=== PATIENT | male | born 1995 | race Hispanic/Latino ===

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

== ENCOUNTER 2018-09-28 19:45 | Emergency (ER) | payer SELFPAY ==
[2018-09-28] MEDS ORDERED: Sodium Chloride 0.9% 10 ML Syringe FLUSH PRN (20:29)
[2018-09-28] MEDS ORDERED: Sodium Chloride 0.9% 2.5 ML Syringe FLUSH PRN (20:29)
[2018-09-28] MEDS ORDERED: Sodium Chloride 0.9% 1,000 ML IV ONE (20:30)
[2018-09-28] MEDS ORDERED: Ketorolac 30 MG/ML SDV IVPUSH ONE (20:30)
[2018-09-28] MEDS ORDERED: Ondansetron 4 MG/2 ML SDV IVPUSH ONE (20:30)
--- NOTE | 2018-09-28 20:33 | EDM.PDOC ---
ED HPI GENERAL MEDICAL PROBLEM - General Chief Complaint: General Stated Complaint: STOMACH PAINS AND HEAD HURTS Time Seen by Provider: 09/28/18 20:19 - History of Present Illness INITIAL COMMENTS - FREE TEXT/NARRATIVE: HISTORY AND PHYSICAL: History of present illness: Patient is a 23-year-old healthy male who presents with complaints of nausea one episodes of vomiting generalized body aches and a mild headache that started this morning. The patient says that he just started to be more active physically and went to the gym last night and had a very strenuous workout which was full body. He felt okay when he went to bed and that he woke up this morning and felt very sore and achy and then had the nausea and headache and diffuse body aches. He has not had a fever cough chest pain or shortness of breath and is only vomited 1 time a small amount which was this morning. He says that he try to hydrate through his workout as well as today but he is not sure and he feels like he might be dehydrated. His urine is not dark in color or bloody and he has no abdominal pain. He has only a diffuse mild headache but no neck or back pain and no neurosensory changes or weakness. He is not dizzy or lightheaded and he did not pass out or blackout. He did not take anything for the muscle aches or the headache. He has not had any diarrhea Review of systems: As per history of present illness and below otherwise all systems reviewed and negative. Past medical history: As per history of present illness and as reviewed below otherwise noncontributory. Surgical history: As per history of present illness and as reviewed below otherwise noncontributory. Social history: No reported history of drug or alcohol abuse. Family history: As per history of present illness and as reviewed below otherwise noncontributory. Physical exam: General: Well-developed well-nourished man who is nontoxic and mildly overweight and her vital signs are noted by me. HEENT: Atraumatic, normocephalic, pupils reactive, negative for conjunctival pallor or scleral icterus, mucous membranes moist, throat clear, neck supple, nontender, trachea midline. There is no cervical adenopathy or nuchal rigidity Lungs: Clear to auscultation, breath sounds equal bilaterally, chest nontender. Heart: S1S2, regular rate and rhythm no overt murmurs Abdomen: Soft, nondistended, nontender. NABS. Pelvis: Deferred Genitourinary: Deferred. Rectal: Deferred. Extremities: Atraumatic, full range of motion without defects or deficits Neurovascular unremarkable. Neuro: Awake, alert, oriented. Cranial nerves II through XII unremarkable. Cerebellum unremarkable. Motor and sensory unremarkable throughout. Exam nonfocal. Diagnostics: CBC CMP lipase magnesium CPK UA Therapeutics: IV fluids Zofran Toradol She is aware of testing results and feels improved. He is aware that he needs to continue hydration for CPK Impression: Generalized malaise, myalgias vomiting improved Definitive disposition and diagnosis as appropriate pending reevaluation and review of above. Headache Pain Score (Numeric/FACES): 5 - Related Data Allergies Allergy/AdvReac Type Severity Reaction Status Date / Time No Known Allergies Allergy Verified 09/28/18 20:22 Home Meds: Home Meds . [No Known Home Meds] 11/23/16 [History] Past Medical History - Past Surgical History Musculoskeletal Surgical History: Reports: Other (See Below) Other Musculoskeletal Surgeries/Procedures:: right hand and right knee surgeries Social & Family History - Family History Family Medical History: Noncontributory - Tobacco Use Smoking Status *Q: Former Smoker Used Tobacco, but Quit: Yes Month/Year Tobacco Last Used: 2018 - Caffeine Use Caffeine Use: Reports: None - Recreational Drug Use Recreational Drug Use: Yes Drug Use in Last 12 Months: Yes Recreational Drug Type: Reports: Marijuana/Hashish Recreational Drug Use Frequency: Daily ED ROS GENERAL - Review of Systems Review Of Systems: ROS reveals no pertinent complaints other than HPI. ED EXAM, GENERAL - Physical Exam Exam: See Below (see dictation) Course - Vital Signs Last Recorded V/S: Last Vital Signs Temp 36.3 C 09/28/18 20:20 Pulse 80 09/28/18 20:20 Resp BP 148/80 H 09/28/18 20:20 Pulse Ox 99 09/28/18 20:20 - Orders/Labs/Meds Orders: Active Orders 24 hr Category Date Time Status Sodium Chloride 0.9% [Saline Flush] Med 09/28/18 20:29 Active 10 ml FLUSH ASDIRECTED PRN Sodium Chloride 0.9% [Saline Flush] Med 09/28/18 20:29 Active 2.5 ml FLUSH ASDIRECTED PRN Saline Lock Insert [OM.PC] Stat Ot 09/28/18 20:29 Ordered Medication Orders Sodium Chloride (Saline Flush) 10 ml FLUSH ASDIRECTED PRN PRN Reason: Keep Vein Open Sodium Chloride (Saline Flush) 2.5 ml FLUSH ASDIRECTED PRN PRN Reason: Keep Vein Open Labs: Laboratory Tests 09/28/18 09/28/18 09/28/18 Range/Units 20:45 20:52 20:52 WBC 8.56 (4.0-11.0) K/uL RBC 5.35 (4.50-5.90) M/uL Hgb 15.5 (13.0-17.0) g/dL Hct 45.9 (38.0-50.0) % MCV 85.8 (80.0-98.0) fL MCH 29.0 (27.0-32.0) pg MCHC 33.8 (31.0-37.0) g/dL RDW Std Deviation 42.6 (28.0-62.0) fl RDW Coeff of Herlinda 14 (11.0-15.0) % Plt Count 160 (150-400) K/uL MPV 11.30 (7.40-12.00) fL Neut % (Auto) 61.9 (48.0-80.0) % Lymph % (Auto) 29.4 (16.0-40.0) % [place] % (Auto) 6.0 (0.0-15.0) % Eos % (Auto) 2.3 (0.0-7.0) % Baso % (Auto) 0.4 (0.0-1.5) % Neut # (Auto) 5.3 (1.4-5.7) K/uL Lymph # (Auto) 2.5 H (0.6-2.4) K/uL [place] # (Auto) 0.5 (0.0-0.8) K/uL Eos # (Auto) 0.2 (0.0-0.7) K/uL Baso # (Auto) 0.0 (0.0-0.1) K/uL Nucleated RBC % 0.0 /100WBC Nucleated RBCs # 0 K/uL Sodium 142 (136-148) mmol/L Potassium 4.2 (3.5-5.1) mmol/L Chloride 105 (98-107) mmol/L Carbon Dioxide 24.0 (21.0-32.0) mmol/L BUN 11 (7.0-18.0) mg/dL Creatinine 1.1 (0.8-1.3) mg/dL Est Cr Clr Drug Dosing 123.51 mL/min Estimated GFR (MDRD) > 60.0 ml/min Glucose 117 H (74-106) mg/dL Calcium 8.6 (8.5-10.1) mg/dL Magnesium 2.2 (1.8-2.4) mg/dL Total Bilirubin 0.3 (0.2-1.0) mg/dL AST 46 H (15-37) IU/L ALT 113 H (14-63) IU/L Alkaline Phosphatase 70 (46-116) U/L Creatine Kinase 615 H (26-308) U/L Total Protein 7.5 (6.4-8.2) g/dL Albumin 3.9 (3.4-5.0) g/dL Globulin 3.6 (2.6-4.0) g/dL Albumin/Globulin Ratio 1.1 (0.9-1.6) Lipase 94 (73-393) U/L Urine Color YELLOW Urine Appearance CLEAR Urine pH 5.5 (5.0-8.0) Ur Specific [place] 1.025 (1.001-1.035) Urine Protein NEGATIVE (NEGATIVE) mg/dL Urine Glucose (UA) NEGATIVE (NEGATIVE) mg/dL Urine Ketones TRACE H (NEGATIVE) mg/dL Urine Occult Blood NEGATIVE (NEGATIVE) Urine Nitrite NEGATIVE (NEGATIVE) Urine Bilirubin NEGATIVE (NEGATIVE) Urine Urobilinogen 0.2 (<2.0) EU/dL Ur Leukocyte Esterase NEGATIVE (NEGATIVE) Meds: Medications Generic Name Dose Route Start Last Admin Trade Name Freq PRN Reason Stop Dose Admin Sodium Chloride 10 ml 09/28/18 20:29 Saline Flush FLUSH ASDIRECTED PRN Keep Vein Open Sodium Chloride 2.5 ml 09/28/18 20:29 Saline Flush FLUSH ASDIRECTED PRN Keep Vein Open Discontinued Medications Generic Name Dose Route Start Last Admin Trade Name Freq PRN Reason Stop Dose Admin Sodium Chloride 1,000 mls @ 999 mls/hr 09/28/18 20:30 09/28/18 20:46 Normal Saline IV 09/28/18 21:30 999 mls/hr STAT ONE Administration Ketorolac Tromethamine 30 mg 09/28/18 20:30 09/28/18 20:46 Toradol IVPUSH 09/28/18 20:31 30 mg ONETIME ONE Administration Ondansetron HCl 4 mg 09/28/18 20:30 09/28/18 20:46 Zofran IVPUSH 09/28/18 20:31 4 mg ONETIME ONE Administration Departure - Departure Time of Disposition: 21:42 Disposition: Home, Self-Care 01 Condition: Good Clinical Impression: Myalgia Vomiting Qualifiers: Vomiting type: unspecified Vomiting Intractability: non-intractable Nausea presence: with nausea Qualified Code(s): R11.2 - Nausea with vomiting, unspecified - Discharge Information Referrals: PCP,None [Primary Care Provider] - Forms: ED Department Discharge Additional Instructions: The following information is given to patients seen in the emergency department who are being discharged to home. This information is to outline your options for follow-up care. We provide all patients seen in our emergency department with a follow-up referral. The need for follow-up, as well as the timing and circumstances, are variable depending upon the specifics of your emergency department visit. If you don't have a primary care physician on staff, we will provide you with a referral. We always advise you to contact your personal physician following an emergency department visit to inform them of the circumstance of the visit and for follow-up with them and/or the need for any referrals to a consulting specialist. The emergency department will also refer you to a specialist when appropriate. This referral assures that you have the opportunity for followup care with a specialist. All of these measure are taken in an effort to provide you with optimal care, which includes your followup. Under all circumstances we always encourage you to contact your private physician who remains a resource for coordinating your care. When calling for followup care, please make the office aware that this follow-up is from your recent emergency room visit. If for any reason you are refused follow-up, please contact the [facility] emergency department at and ask to speak to the emergency department charge nurse. [facility] Primary care- Internal Medicine and Family [address] [place] [address] Please push hydration such as water and Gatorade and avoid caffeinated products. Use [id number] ibuprofen or Motrin for aches and pains and schedule a follow-up appointment with your provider in the clinic or one of hours. Return to ER as needed and as discussed - My Orders Last 24 Hours: My Active Orders 09/28/18 20:29 Sodium Chloride 0.9% [Saline Flush] 10 ml FLUSH ASDIRECTED PRN Sodium Chloride 0.9% [Saline Flush] 2.5 ml FLUSH ASDIRECTED PRN Saline Lock Insert [OM.PC] Stat - Assessment/Plan Last 24 Hours: My Active Orders 09/28/18 20:29 Sodium Chloride 0.9% [Saline Flush] 10 ml FLUSH ASDIRECTED PRN Sodium Chloride 0.9% [Saline Flush] 2.5 ml FLUSH ASDIRECTED PRN Saline Lock Insert [OM.PC] Stat
[2018-09-28 21:29] LABS: CHLORIDE,CL 105 mmol/L (98-107); SODIUM,NA 142 mmol/L (136-148)
[2018-09-28 22:20] VITALS: BP 119/56
== END 2018-09-28 21:55 | disposition home or self-care (01) ==
LOC: MW.ED 19:45
DX: R11.2 Nausea with vomiting, unspecified (principal); M79.10 Myalgia, unspecified site; R53.81 Other malaise; Z87.891 Personal history of nicotine dependence
CPT/HCPCS: 36415; 80053; 81003; 82550; 83690; 83735; 85025; 96361; 96374; 96375; 99284; J1885; J2405; J7040

== ENCOUNTER 2018-11-30 09:30 | Emergency (ER) | payer SELFPAY ==
[2018-11-30] MEDS ORDERED: Albuterol/Ipratropium 3.0-0.5 MG/3 ML Neb Soln NEB ONE (09:39)
[2018-11-30] MEDS ORDERED: methylPREDNISolone Sodium Succinate 125 MG/2 ML SDV IM ONE (09:39)
--- NOTE | 2018-11-30 09:41 | EDM.PDOC ---
ED HPI GENERAL MEDICAL PROBLEM - General Chief Complaint: Respiratory Problem Stated Complaint: SHORT OF BREATH Time Seen by Provider: 11/30/18 09:39 Source of Information: Reports: Patient - History of Present Illness INITIAL COMMENTS - FREE TEXT/NARRATIVE: HISTORY AND PHYSICAL: History of present illness: []Patient presents with severe cough upon awakening he had been smoking some cigarettes and/or marijuana Presents in no acute distress Review of systems: As per history of present illness and below otherwise all systems reviewed and negative. Past medical history: As per history of present illness and as reviewed below otherwise noncontributory. Surgical history: As per history of present illness and as reviewed below otherwise noncontributory. Social history: No reported history of drug or alcohol abuse. Family history: As per history of present illness and as reviewed below otherwise noncontributory. Physical exam: HEENT: Atraumatic, normocephalic, pupils reactive, negative for conjunctival pallor or scleral icterus, mucous membranes moist, throat clear, neck supple, nontender, trachea midline. Lungs: Clear to auscultation, breath sounds equal bilaterally, chest nontender. Heart: S1S2, regular, negative for clicks, rubs, or JVD. Abdomen: Soft, nondistended, nontender. Negative for masses or hepatosplenomegaly. Negative for costovertebral tenderness. Pelvis: Stable nontender. Genitourinary: Deferred. Rectal: Deferred. Extremities: Atraumatic, negative for cords or calf pain. Neurovascular unremarkable. Neuro: Awake, alert, oriented. Cranial nerves II through XII unremarkable. Cerebellum unremarkable. Motor and sensory unremarkable throughout. Exam nonfocal. Diagnostics: [Chest 1 view ] Therapeutics: [DuoNeb Solu-Medrol 125 mg IM ] Z-Otto Prednisone HFA Impression: [ cute bronchitis] Definitive disposition and diagnosis as appropriate pending reevaluation and review of above. chest Pain Score (Numeric/FACES): 5 - Related Data Allergies Allergy/AdvReac Type Severity Reaction Status Date / Time No Known Allergies Allergy Verified 11/30/18 09:37 Home Meds: Home Meds . [No Known Home Meds] 11/23/16 [History] Past Medical History - Past Surgical History Musculoskeletal Surgical History: Reports: Other (See Below) Other Musculoskeletal Surgeries/Procedures:: right hand and right knee surgeries Social & Family History - Family History Family Medical History: Noncontributory - Caffeine Use Caffeine Use: Reports: None ED ROS GENERAL - Review of Systems Review Of Systems: See Below ED EXAM, GENERAL - Physical Exam Exam: See Below Course - Vital Signs Last Recorded V/S: Last Vital Signs Temp 97.0 F 11/30/18 09:35 Pulse 61 11/30/18 09:35 Resp 12 11/30/18 09:35 BP 161/95 H 11/30/18 09:35 Pulse Ox 99 11/30/18 09:39 - Orders/Labs/Meds Orders: Active Orders 24 hr Category Date Time Status EKG 12 Lead [EKG Documentation Completion] [RC] STAT Care 11/30/18 10:03 Active RT Aerosol Therapy [RC] ASDIRECTED Care 11/30/18 09:39 Active Chest 1V Frontal [CR] Stat Exams 11/30/18 09:39 Taken Meds: Medications Discontinued Medications Generic Name Dose Route Start Last Admin Trade Name Freq PRN Reason Stop Dose Admin Albuterol/Ipratropium 3 ml 11/30/18 09:39 11/30/18 09:44 Duoneb 3.0-0.5 Mg/3 Ml NEB 11/30/18 09:40 3 ml ONETIME ONE Administration Methylprednisolone Sodium Succinate 125 mg 11/30/18 09:39 11/30/18 09:51 Solu-Medrol IM 11/30/18 09:40 125 mg ONETIME ONE Administration Departure - Departure Time of Disposition: 10:15 Disposition: Home, Self-Care 01 Condition: Good Clinical Impression: Acute bronchitis - Discharge Information Referrals: PCP,None [Primary Care Provider] - Forms: ED Department Discharge Additional Instructions: The following information is given to patients seen in the emergency department who are being discharged to home. This information is to outline your options for follow-up care. We provide all patients seen in our emergency department with a follow-up referral. The need for follow-up, as well as the timing and circumstances, are variable depending upon the specifics of your emergency department visit. If you don't have a primary care physician on staff, we will provide you with a referral. We always advise you to contact your personal physician following an emergency department visit to inform them of the circumstance of the visit and for follow-up with them and/or the need for any referrals to a consulting specialist. The emergency department will also refer you to a specialist when appropriate. This referral assures that you have the opportunity for follow-up care with a specialist. All of these measure are taken in an effort to provide you with optimal care, which includes your follow-up. Under all circumstances we always encourage you to contact your private physician who remains a resource for coordinating your care. When calling for follow-up care, please make the office aware that this follow-up is from your recent emergency room visit. If for any reason you are refused follow-up, please contact the [facility] emergency department at and asked to speak to the emergency department charge nurse. - My Orders Last 24 Hours: My Active Orders 11/30/18 09:39 RT Aerosol Therapy [RC] ASDIRECTED Chest 1V Frontal [CR] Stat 11/30/18 10:03 EKG 12 Lead [EKG Documentation Completion] [RC] STAT - Assessment/Plan Last 24 Hours: My Active Orders 11/30/18 09:39 RT Aerosol Therapy [RC] ASDIRECTED Chest 1V Frontal [CR] Stat 11/30/18 10:03 EKG 12 Lead [EKG Documentation Completion] [RC] STAT
[2018-11-30 10:30] VITALS: BP 138/67
--- NOTE | 2018-11-30 10:42 | CR ---
INDICATION: Pain and shortness of breath. TECHNIQUE: Single frontal chest radiograph. FINDINGS: External monitoring leads are seen overlying the patient. Heart and mediastinum are normal. Lungs are clear. No pneumothorax. IMPRESSION: No evidence of acute disease. Dictated by Patrice Madrigal MD @ Nov 30 2018 10:36AM Signed by Dr. Patrice Madrigal @ Nov 30 2018 10:40AM
== END 2018-11-30 10:27 | disposition home or self-care (01) ==
LOC: MW.ED 09:30
DX: J20.9 Acute bronchitis, unspecified (principal)
CPT/HCPCS: 71045; 93005; 94640; 96372; 99285; J2930; J7620-GY

== ENCOUNTER 2020-03-14 10:25 | Emergency (ER) | payer SELFPAY ==
[2020-03-14] MEDS ORDERED: Diphtheria,Pertussis(Acell),Tetanus Vaccine 0.5 ML Syringe IM ONE (10:43)
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
--- NOTE | 2020-03-14 11:20 | CR ---
Nasal bone: 3 views of the nasal bone were obtained. Comparison: No previous study. Slight deformity of the nasal bone compatible with old healed fracture. No acute fracture is seen. Visualized sinuses are clear. Impression: 1. Old healed fracture. 2. Nothing acute is appreciated. Diagnostic code #2 This report was dictated in MDT
[2020-03-14 11:55] VITALS: BP 165/86; PULSE 64
== END 2020-03-14 11:50 | disposition home or self-care (01) ==
LOC: MW.ED 10:25
DX: S09.92XA Unspecified injury of nose, initial encounter (principal); Z23 Encounter for immunization; Y04.2XXA Assault by strike against or bumped into by another person, initial encounter
CPT/HCPCS: 70160; 70160-26; 90471; 90715; 99283; 99283-25

== ENCOUNTER 2020-08-24 09:24 | Emergency (ER) | payer SELFPAY ==
--- NOTE | 2020-08-24 10:48 | EDM.PDOC ---
ED HPI GENERAL MEDICAL PROBLEM - General Chief Complaint: General Stated Complaint: SPOKE TO NURSE Time Seen by Provider: 08/24/20 09:34 - History of Present Illness INITIAL COMMENTS - FREE TEXT/NARRATIVE: 25-year-old male with prior history of hemorrhoids presents with 1 week of perianal pain. It was similar to prior hemorrhoids and last night states that it was the size of a grape. He has been using various antibiotic ointments as well as a colon cleanse. He does not use any steroid creams. Last night the pain was very severe so he popped it with a needle. It bled significantly and he had some relief but this morning it filled up with blood again. No fevers no chills no abdominal pain no other symptoms. Pain currently moderate. Anus Pain Score (Numeric/FACES): 6 - Related Data Allergies Allergy/AdvReac Type Severity Reaction Status Date / Time No Known Allergies Allergy Verified 08/24/20 09:32 Home Meds: Home Meds Hydrocortisone [Anusol-Hc] 30 gm TP TID 7 Days #1 tube 08/24/20 [Rx] Past Medical History - Past Health History Medical/Surgical History: Denies Medical/Surgical History HEENT History: Reports: None Cardiovascular History: Reports: None Respiratory History: Reports: None Gastrointestinal History: Reports: None Genitourinary History: Reports: None Musculoskeletal History: Reports: None Neurological History: Reports: None Psychiatric History: Reports: None Endocrine/Metabolic History: Reports: None Hematologic History: Reports: None Immunologic History: Reports: None Oncologic (Cancer) History: Reports: None Dermatologic History: Reports: None - Infectious Disease History Infectious Disease History: Reports: None - Past Surgical History Male Surgical History: Reports: None Neurological Surgical History: Reports: None Musculoskeletal Surgical History: Reports: Other (See Below) Other Musculoskeletal Surgeries/Procedures:: right hand and right knee surgeries Social & Family History - Family History Family Medical History: No Pertinent Family History - Tobacco Use Tobacco Use Status *Q: Former Tobacco User Used Tobacco, but Quit: Yes Month/Year Tobacco Last Used: 08/18 - Caffeine Use Caffeine Use: Reports: None - Recreational Drug Use Recreational Drug Use: Yes Recreational Drug Type: Reports: Marijuana/Hashish ED ROS GENERAL - Review of Systems Review Of Systems: See Below Free Text/Narrative/Comment: General: No fever. Gastrointestinal: Per HPI ED EXAM, GENERAL - Physical Exam Exam: See Below Free Text/Narrative:: General Appearance: No acute distress, appears comfortable HEENT: Normocephalic/atraumatic, sclera anicteric, mucous membranes moist Abdomen: Soft, non-tender Rectal: Soft partially thrombosed external hemorrhoid with sign of recent puncture but no surrounding erythema no bleeding no purulent drainage no sign of perirectal abscess Neurologic: Awake, alert, no obvious deficits, moving all extremities Psychiatric: Appropriate, cooperative Course - Vital Signs Last Recorded V/S: Last Vital Signs Temp 98.0 F 08/24/20 09:33 Pulse 99 08/24/20 09:33 Resp 18 08/24/20 09:33 BP 139/74 08/24/20 09:33 Pulse Ox 99 08/24/20 09:33 Departure - Departure Time of Disposition: 10:48 Disposition: Home, Self-Care 01 Condition: Good Clinical Impression: External hemorrhoid - Discharge Information *PRESCRIPTION DRUG MONITORING PROGRAM REVIEWED*: Not Applicable *COPY OF PRESCRIPTION DRUG MONITORING REPORT IN PATIENT ARPITA: Not Applicable Prescriptions: Hydrocortisone [Anusol-Hc] 30 gm TP TID 7 Days #1 tube Instructions: Hemorrhoids, [id number], How to Take a Sitz Bath Additional Instructions: Please follow-up with your primary care doctor. If you do not have a primary care doctor you can be seen in one of the primary clinics in [facility]. [facility] - Primary Care [address] [place] [address] [place] [address] I recommend using the steroid cream as prescribed recommend sitz baths up to 3 times daily as needed for discomfort. The following information is given to patients seen in the emergency department who are being discharged to home. This information is to outline your options for follow-up care. We provide all patients seen in our emergency department with a follow-up referral. The need for follow-up, as well as the timing and circumstances, are variable depending upon the specifics of your emergency department visit. If you don't have a primary care physician on staff, we will provide you with a referral. We always advise you to contact your personal physician following an emergency department visit to inform them of the circumstance of the visit and for follow-up with them and/or the need for any referrals to a consulting specialist. The emergency department will also refer you to a specialist when appropriate. This referral assures that you have the opportunity for follow-up care with a specialist. All of these measure are taken in an effort to provide you with optimal care, which includes your follow-up. Under all circumstances we always encourage you to contact your private physician who remains a resource for coordinating your care. When calling for follow-up care, please make the office aware that this follow-up is from your recent emergency room visit. If for any reason you are refused follow-up, please contact the [facility] Emergency Department at and asked to speak to the emergency department charge nurse. Sepsis Event Note (ED) - Evaluation Sepsis Screening Result: No Definite Risk - Focused Exam Vital Signs: Vital Signs Temp Pulse Resp BP Pulse Ox 08/24/20 09:33 98.0 F 99 18 139/74 99 - Assessment/Plan Assessment:: 25-year-old male presenting with partially thrombosed hemorrhoid. Given that is not fully thrombosed incision and drainage not felt appropriate recommended steroid cream and primary care follow-up. Sitz bath's as well. Return precautions discussed and understood. No signs of perirectal abscess no sign of deeper infection no systemic signs or symptoms.
[2020-08-24 11:02] VITALS: BP 147/102; PULSE 80
== END 2020-08-24 11:03 | disposition home or self-care (01) ==
LOC: MW.ED 09:24
DX: K64.4 Residual hemorrhoidal skin tags (principal); Z87.891 Personal history of nicotine dependence
CPT/HCPCS: 99282

== ENCOUNTER 2021-07-09 07:49 | Emergency (ER) | payer SELFPAY ==
[2021-07-09] MEDS ORDERED: Ketorolac 30 MG/ML SDV IM ONE (08:03)
[2021-07-09] MEDS ORDERED: Cyclobenzaprine 10 MG Tab PO ONE (08:03)
[2021-07-09 08:47] LABS: CORONAVIRUS COVID-19 NAA POSITIVE (NEGATIVE); INFLUENZA A NAA NEGATIVE (NEGATIVE); INFLUENZA B NAA NEGATIVE (NEGATIVE)
[2021-07-09 09:32] VITALS: BP 140/78; PULSE 73
== END 2021-07-09 09:31 | disposition home or self-care (01) ==
LOC: MW.ED 07:49
DX: U07.1 COVID-19 (principal); M54.59 Other low back pain
CPT/HCPCS: 0240U; 71045; 81003; 96372; 99283; A9270; J1885

== ENCOUNTER 2021-07-24 08:20 | Emergency (ER) | payer SELFPAY ==
[2021-07-24] MEDS ORDERED: Acetaminophen/HYDROcodone 325-10 MG Tab PO ONE (08:58)
[2021-07-24 16:22] VITALS: BP 131/68; PULSE 71
== END 2021-07-24 09:36 | disposition home or self-care (01) ==
LOC: MW.ED 08:20
DX: S32.2XXA Fracture of coccyx, initial encounter for closed fracture (principal); E66.9 Obesity, unspecified; Z68.41 Body mass index [BMI] 40.0-44.9, adult; W01.0XXA Fall on same level from slipping, tripping and stumbling without subsequent striking against object, initial encounter
CPT/HCPCS: 72170; 99283; A9270

== ENCOUNTER 2021-10-30 18:13 | Emergency (ER) | payer BC, OTHER ==
[2021-10-30] MEDS ORDERED: Sodium Chloride 0.9% 1,000 ML IV ONE (18:40)
[2021-10-30] MEDS ORDERED: Aspirin 81 MG Tab.Chew PO ONE (18:40)
[2021-10-30 19:49] LABS: BLOOD UREA NITROGEN,BUN 20 mg/dL (7.0-18.0); CARBON DIOXIDE,CO2 24.9 mmol/L (21.0-32.0); CHLORIDE,CL 104 mmol/L (98-107); GLUCOSE RANDOM 99 mg/dL (74-106); SODIUM,NA 143 mmol/L (136-148)
[2021-10-30 21:28] VITALS: BP 133/80; PULSE 84
== END 2021-10-30 20:30 | disposition home or self-care (01) ==
LOC: MW.ED 18:13
DX: R07.89 Other chest pain (principal); E66.9 Obesity, unspecified; Z68.41 Body mass index [BMI] 40.0-44.9, adult
CPT/HCPCS: 36415; 71045; 80053; 83735; 84484; 85025; 85379; 93005; 99285; A9270; J7030

== ENCOUNTER 2021-11-21 20:00 | Emergency (ER) | payer BC ==
[2021-11-21] MEDS ORDERED: LORazepam 2 MG/ML SDV IVPUSH ONE (20:11)
[2021-11-21] MEDS ORDERED: Sodium Chloride 0.9% 1,000 ML IV ONE (20:11)
[2021-11-21 20:20] VITALS: BP 127/44; PULSE 135
[2021-11-21 20:44] LABS: BLOOD UREA NITROGEN,BUN 18 mg/dL (7.0-18.0); CARBON DIOXIDE,CO2 22.4 mmol/L (21.0-32.0); CHLORIDE,CL 100 mmol/L (98-107); GLUCOSE RANDOM 134 mg/dL (74-106); SODIUM,NA 138 mmol/L (136-148)
== END 2021-11-21 23:08 | disposition home or self-care (01) ==
LOC: MW.ED 20:00
DX: R00.2 Palpitations (principal); R06.4 Hyperventilation; T40.715A Adverse effect of cannabis, initial encounter; E66.9 Obesity, unspecified; Z68.39 Body mass index [BMI] 39.0-39.9, adult
CPT/HCPCS: 36415; 71045; 80053; 80305; 80307; 83735; 84484; 85025; 93005; 96374; 99285; J2060; J7030

== ENCOUNTER 2022-01-03 18:19 | Emergency (ER) | payer BC ==
[2022-01-03] MEDS ORDERED: Sodium Chloride 0.9% 10 ML Syringe FLUSH PRN (20:01)
[2022-01-03] MEDS ORDERED: Sodium Chloride 0.9% 1,000 ML IV ONE (20:01)
[2022-01-03] MEDS ORDERED: LORazepam 2 MG/ML SDV IVPUSH ONE (20:01)
[2022-01-03] MEDS ORDERED: Sodium Chloride 0.9% 2.5 ML Syringe FLUSH PRN (20:01)
[2022-01-03 21:24] LABS: CARBON DIOXIDE,CO2 23.2 mmol/L (21.0-32.0); POTASSIUM,K 3.7 mmol/L (3.5-5.1)
[2022-01-04 07:51] VITALS: BP 150/91; PULSE 80
== END 2022-01-03 22:08 | disposition home or self-care (01) ==
LOC: MW.ED 18:19
DX: R07.89 Other chest pain (principal); F41.9 Anxiety disorder, unspecified; E66.9 Obesity, unspecified; Z68.41 Body mass index [BMI] 40.0-44.9, adult
CPT/HCPCS: 36415; 80053; 85025; 93005; 96361; 96374; 99285; J2060; J3490; J7030; 93010; 99284

== ENCOUNTER 2022-05-15 05:17 | Emergency (ER) | payer BC ==
[2022-05-15 06:31] LABS: CARBON DIOXIDE,CO2 31.5 mmol/L (21.0-32.0); POTASSIUM,K 4.3 mmol/L (3.5-5.1)
[2022-05-15 07:08] VITALS: BP 120/73; PULSE 70
== END 2022-05-15 07:06 | disposition home or self-care (01) ==
LOC: MW.ED 05:17
DX: R07.89 Other chest pain (principal); E66.9 Obesity, unspecified; Z68.39 Body mass index [BMI] 39.0-39.9, adult
CPT/HCPCS: 36415; 71045; 71045-26; 80053; 83735; 84443; 84484; 85025; 93005; 99285

== ENCOUNTER 2022-08-09 12:54 | Emergency (ER) | payer BC ==
[2022-08-09] MEDS ORDERED: LORazepam 1 MG Tab PO ONE (13:34)
[2022-08-09 14:18] LABS: CARBON DIOXIDE,CO2 27.3 mmol/L (21.0-32.0)
[2022-08-09 15:03] VITALS: BP 123/61; PULSE 69
== END 2022-08-09 15:02 | disposition home or self-care (01) ==
LOC: MW.ED 12:54
DX: R07.9 Chest pain, unspecified (principal); R00.2 Palpitations; E66.9 Obesity, unspecified; Z68.41 Body mass index [BMI] 40.0-44.9, adult
CPT/HCPCS: 36415; 71045; 80053; 84484; 85025; 85379; 93005; 99285; A9270; 93010; 99283

== ENCOUNTER 2022-08-19 21:02 | Emergency (ER) | payer BC ==
[2022-08-19] MEDS ORDERED: LORazepam 0.5 MG Tab PO ONE (21:13)
[2022-08-19 23:53] LABS: CARBON DIOXIDE,CO2 26.4 mmol/L (21.0-32.0)
[2022-08-20 00:24] VITALS: BP 116/70; PULSE 66
== END 2022-08-20 00:23 | disposition home or self-care (01) ==
LOC: MW.ED 21:02
DX: R07.89 Other chest pain (principal); E66.9 Obesity, unspecified; Z68.39 Body mass index [BMI] 39.0-39.9, adult
CPT/HCPCS: 36415; 71045; 80053; 84484; 85027; 93005; 99285; A9270; 93010; 99283

== ENCOUNTER 2022-08-22 20:33 | Emergency (ER) | payer BC ==
[2022-08-22] MEDS ORDERED: Sodium Chloride 0.9% 2.5 ML Syringe FLUSH PRN (20:41)
[2022-08-22] MEDS ORDERED: Sodium Chloride 0.9% 10 ML Syringe FLUSH PRN (20:41)
[2022-08-22] MEDS ORDERED: LORazepam 1 MG Tab PO STA (20:43)
[2022-08-22 21:24] LABS: BLOOD UREA NITROGEN,BUN 10 mg/dL (7.0-18.0); CARBON DIOXIDE,CO2 27.3 mmol/L (21.0-32.0); CHLORIDE,CL 101 mmol/L (98-107); GLUCOSE RANDOM 125 mg/dL (74-106); POTASSIUM,K 3.8 mmol/L (3.5-5.1); SODIUM,NA 139 mmol/L (136-148)
[2022-08-22 21:26] LABS: ESTIMATED GFR 86 mL/min (>60)
[2022-08-22] MEDS ORDERED: Iopamidol 755 MG/ML 500 ML Multipack Bottle IVPUSH ONE (22:36)
[2022-08-23 00:49] VITALS: BP 112/64; PULSE 74
== END 2022-08-23 00:49 | disposition home or self-care (01) ==
LOC: MW.ED 20:33
DX: R07.89 Other chest pain (principal); E66.9 Obesity, unspecified; Z68.41 Body mass index [BMI] 40.0-44.9, adult
CPT/HCPCS: 36415; 71045; 71275; 80053; 80305; 81003; 83735; 84484; 85025; 93005; 99285; A9270; J3490; Q9967; 93010; 99284

== ENCOUNTER 2022-08-27 06:08 | Emergency (ER) | payer SELFPAY ==
[2022-08-27 07:03] VITALS: BP 116/65; PULSE 71
== END 2022-08-27 07:00 | disposition home or self-care (01) ==
LOC: MW.ED 06:08
DX: R07.89 Other chest pain (principal); E66.9 Obesity, unspecified; Z68.30 Body mass index [BMI] 30.0-30.9, adult
CPT/HCPCS: 93005; 93010; 99283; 99284

== ENCOUNTER 2022-10-19 15:13 | Emergency (ER) | payer SELFPAY ==
[2022-10-19] MEDS ORDERED: Ondansetron 4 MG/2 ML SDV IVPUSH ONE (18:16)
[2022-10-19] MEDS ORDERED: Lactated Ringers 1,000 ML IV ONE (18:16)
[2022-10-19] MEDS ORDERED: Ketorolac 30 MG/ML SDV IVPUSH ONE (18:16)
[2022-10-19 19:01] LABS: POTASSIUM,K 4.1 mmol/L (3.5-5.1)
[2022-10-19 20:16] VITALS: BP 133/70; PULSE 60
== END 2022-10-19 20:11 | disposition home or self-care (01) ==
LOC: MW.ED 15:13
DX: R11.2 Nausea with vomiting, unspecified (principal); R10.816 Epigastric abdominal tenderness; E66.9 Obesity, unspecified; Z68.39 Body mass index [BMI] 39.0-39.9, adult
CPT/HCPCS: 36415; 80053; 81003; 83690; 85025; 96361; 96374; 96375; 99284; J1885; J2405; J7120

== ENCOUNTER 2022-12-08 08:58 | Emergency (ER) | payer SELFPAY ==
[2022-12-08] MEDS ORDERED: Ibuprofen 600 MG Tab PO ONE (11:04)
[2022-12-08 11:33] VITALS: BP 129/79; PULSE 65
== END 2022-12-08 11:32 | disposition home or self-care (01) ==
LOC: MW.ED 08:58
DX: S80.02XA Contusion of left knee, initial encounter (principal); E66.9 Obesity, unspecified; Z68.30 Body mass index [BMI] 30.0-30.9, adult; W50.0XXA Accidental hit or strike by another person, initial encounter
CPT/HCPCS: 73562; 73590; 99283; A9270

== ENCOUNTER 2023-01-02 17:53 | Emergency (ER) | payer SELFPAY ==
[2023-01-02] MEDS ORDERED: Sodium Chloride 0.9% 2.5 ML Syringe FLUSH PRN (18:08)
[2023-01-02] MEDS ORDERED: Sodium Chloride 0.9% 10 ML Syringe FLUSH PRN (18:08)
[2023-01-02 18:33] LABS: BASOPHILS PERCENT AUTO 0.3 % (0.0-1.5); EOSINOPHILS ABSOLUTE AUTO 0.1 K/uL (0.0-0.7); HEMATOCRIT 47.8 % (38.0-50.0); LYMPHOCYTES ABSOLUTE AUTO 1.3 K/uL (0.6-2.4); LYMPHOCYTES PERCENT AUTO 19.8 % (16.0-40.0); MEAN CORPUSCULAR HEMOGLOBIN 28.8 pg (27.0-32.0); MEAN CORPUSCULAR HGB CONC 33.5 g/dL (31.0-37.0); MONOCYTES ABSOLUTE AUTO 0.5 K/uL (0.0-0.8); MONOCYTES PERCENT AUTO 7.5 % (0.0-15.0); NEUTROPHILS ABSOLUTE AUTO 4.6 K/uL (1.4-5.7); NEUTROPHILS PERCENT AUTO 70.4 % (48.0-80.0); PLATELET COUNT,PLT 154 K/uL (150-400); RED BLOOD CELL COUNT 5.56 M/uL (4.50-5.90); WHITE BLOOD CELL COUNT,WBC 6.52 K/uL (4.0-11.0)
[2023-01-02 18:56] LABS: A/G RATIO 1.3 (0.9-1.6); ALBUMIN 3.9 g/dL (3.4-5.0); BILIRUBIN TOTAL 1.2 mg/dL (0.2-1.0); CALCIUM 8.8 mg/dL (8.5-10.1); CARBON DIOXIDE,CO2 28.4 mmol/L (21.0-32.0); CREATININE 1.1 mg/dL (0.8-1.3); EST CRCL DRUG DOSING (CG) 112.68 mL/min; POTASSIUM,K 4.2 mmol/L (3.5-5.1); PROTEIN TOTAL,TP 6.9 g/dL (6.4-8.2)
[2023-01-02] MEDS ORDERED: Acetaminophen 325 MG Tab PO ONE (19:15)
[2023-01-02 20:10] VITALS: BP 143/78; PULSE 70
== END 2023-01-02 20:13 | disposition home or self-care (01) ==
LOC: MW.ED 17:53
DX: R42 Dizziness and giddiness (principal); R51.9 Headache, unspecified; E66.9 Obesity, unspecified; Z68.38 Body mass index [BMI] 38.0-38.9, adult
CPT/HCPCS: 36415; 80053; 85025; 99284; A9270; J3490; 93010; 99283

== ENCOUNTER 2023-03-20 02:53 | Emergency (ER) | payer SELFPAY ==
[2023-03-20] MEDS ORDERED: hydrOXYzine Pamoate 25 MG Cap PO ONE (03:26)
[2023-03-20 04:19] VITALS: BP 131/90; PULSE 91
== END 2023-03-20 04:19 | disposition home or self-care (01) ==
LOC: MW.ED 02:53
DX: F41.0 Panic disorder [episodic paroxysmal anxiety] (principal); E66.9 Obesity, unspecified; Z68.33 Body mass index [BMI] 33.0-33.9, adult
CPT/HCPCS: 99283; A9270

== ENCOUNTER 2023-04-15 12:54 | Emergency (ER) | payer SELFPAY ==
[2023-04-15 14:27] LABS: CORONAVIRUS COVID-19 NAA NEGATIVE (NEGATIVE); INFLUENZA A NAA NEGATIVE (NEGATIVE); INFLUENZA B NAA NEGATIVE (NEGATIVE)
[2023-04-15 15:34] VITALS: BP 126/86; PULSE 92
== END 2023-04-15 15:14 | disposition home or self-care (01) ==
LOC: MW.ED 12:54
DX: J18.9 Pneumonia, unspecified organism (principal); F17.210 Nicotine dependence, cigarettes, uncomplicated; E66.9 Obesity, unspecified; Z68.33 Body mass index [BMI] 33.0-33.9, adult; Z20.822 Contact with and (suspected) exposure to COVID-19
CPT/HCPCS: 0240U; 71046; 99283

== ENCOUNTER 2023-06-30 18:21 | Emergency (ER) | payer SELFPAY ==
[2023-06-30] MEDS ORDERED: Sodium Chloride 0.9% 2.5 ML Syringe FLUSH PRN (21:04)
[2023-06-30] MEDS ORDERED: Sodium Chloride 0.9% 1,000 ML IV ONE (21:04)
[2023-06-30] MEDS ORDERED: Sodium Chloride 0.9% 10 ML Syringe FLUSH PRN (21:04)
[2023-06-30] MEDS ORDERED: Ketorolac 30 MG/ML SDV IVPUSH ONE (21:05)
[2023-06-30 21:36] LABS: BASOPHILS ABSOLUTE AUTO 0.04 K/uL (0.00-0.20); BASOPHILS PERCENT AUTO 0.5 % (0.0-1.0); EOSINOPHILS PERCENT AUTO 1.3 % (0.0-6.0); HEMATOCRIT 48.5 % (42.0-52.0); HEMOGLOBIN 16.1 g/dL (14.0-18.0); IMMATURE GRAN ABSOLUTE AUTO 0.01 K/uL (0.00-0.05); IMMATURE GRAN PERCENT AUTO 0.1 % (0.0-0.4); LYMPHOCYTES ABSOLUTE AUTO 1.99 K/uL (1.00-4.80); LYMPHOCYTES PERCENT AUTO 25.7 % (24.0-44.0); MEAN CORPUSCULAR HEMOGLOBIN 29.1 pg (28.0-32.0); MEAN CORPUSCULAR HGB CONC 33.2 g/dL (32.0-36.0); MEAN CORPUSCULAR VOLUME 87.5 fL (83.0-99.0); MEAN PLATELET VOLUME 10.5 fL (9.4-12.4); MONOCYTES ABSOLUTE AUTO 0.43 K/uL (0.00-0.80); MONOCYTES PERCENT AUTO 5.6 % (0.0-8.0); NEUTROPHILS ABSOLUTE AUTO 5.17 K/uL (1.80-7.70); NEUTROPHILS PERCENT AUTO 66.8 % (41.0-71.0); PLATELET COUNT,PLT 160 K/uL (150-400); RED BLOOD CELL COUNT 5.54 M/uL (4.52-5.90); WHITE BLOOD CELL COUNT,WBC 7.74 K/uL (3.9-11.3)
[2023-06-30 22:20] LABS: A/G RATIO 1.3 (0.9-1.6); ALANINE AMINOTRANSFERASE,ALT 34 IU/L (14-63); ALBUMIN 4.3 g/dL (3.4-5.0); ALKALINE PHOSPHATASE 74 U/L (46-116); ASPARTATE AMNIOTRANSFERASE,AST 21 IU/L (15-37); BILIRUBIN TOTAL 0.9 mg/dL (0.2-1.0); BLOOD UREA NITROGEN,BUN 16 mg/dL (7.0-18.0); CALCIUM 9.1 mg/dL (8.5-10.1); CARBON DIOXIDE,CO2 26.6 mmol/L (21.0-32.0); CHLORIDE,CL 103 mmol/L (98-107); CREATININE 1.2 mg/dL (0.8-1.3); EST CRCL DRUG DOSING (CG) 103.29 mL/min; ESTIMATED GFR 86 mL/min (>60); GLUCOSE RANDOM 97 mg/dL (74-106); POTASSIUM,K 4.7 mmol/L (3.5-5.1); PROTEIN TOTAL,TP 7.6 g/dL (6.4-8.2); SODIUM,NA 142 mmol/L (136-148)
[2023-06-30 22:52] VITALS: BP 132/70; PULSE 78
== END 2023-06-30 22:51 | disposition home or self-care (01) ==
LOC: MW.ED 18:21
DX: R55 Syncope and collapse (principal); R51.9 Headache, unspecified; F17.210 Nicotine dependence, cigarettes, uncomplicated; E78.00 Pure hypercholesterolemia, unspecified; E66.9 Obesity, unspecified; Z68.34 Body mass index [BMI] 34.0-34.9, adult
CPT/HCPCS: 36415; 70450; 80053; 84484; 85025; 93005; 96361; 96374; 99284; J1885; J3490; J7030; 93010

== ENCOUNTER 2023-07-02 01:23 | Emergency (ER) | payer SELFPAY ==
[2023-07-02] MEDS ORDERED: Sodium Chloride 0.9% 1,000 ML IV ONE (01:33)
[2023-07-02] MEDS ORDERED: Sodium Chloride 0.9% 10 ML Syringe FLUSH PRN (01:33)
[2023-07-02] MEDS ORDERED: Sodium Chloride 0.9% 2.5 ML Syringe FLUSH PRN (01:33)
[2023-07-02 02:10] LABS: BASOPHILS ABSOLUTE AUTO 0.06 K/uL (0.00-0.20); BASOPHILS PERCENT AUTO 0.6 % (0.0-1.0); EOSINOPHILS ABSOLUTE AUTO 0.05 K/uL (0.00-0.45); EOSINOPHILS PERCENT AUTO 0.5 % (0.0-6.0); HEMOGLOBIN 16.7 g/dL (14.0-18.0); IMMATURE GRAN ABSOLUTE AUTO 0.02 K/uL (0.00-0.05); IMMATURE GRAN PERCENT AUTO 0.2 % (0.0-0.4); LYMPHOCYTES ABSOLUTE AUTO 2.75 K/uL (1.00-4.80); LYMPHOCYTES PERCENT AUTO 27.4 % (24.0-44.0); MEAN CORPUSCULAR HEMOGLOBIN 29.5 pg (28.0-32.0); MEAN CORPUSCULAR HGB CONC 34.8 g/dL (32.0-36.0); MEAN CORPUSCULAR VOLUME 84.7 fL (83.0-99.0); MEAN PLATELET VOLUME 10.9 fL (9.4-12.4); MONOCYTES ABSOLUTE AUTO 0.59 K/uL (0.00-0.80); MONOCYTES PERCENT AUTO 5.9 % (0.0-8.0); NEUTROPHILS ABSOLUTE AUTO 6.56 K/uL (1.80-7.70); NEUTROPHILS PERCENT AUTO 65.4 % (41.0-71.0); PLATELET COUNT,PLT 208 K/uL (150-400); RED BLOOD CELL COUNT 5.67 M/uL (4.52-5.90); WHITE BLOOD CELL COUNT,WBC 10.03 K/uL (3.9-11.3)
[2023-07-02 02:34] LABS: A/G RATIO 1.2 (0.9-1.6); ALBUMIN 4.6 g/dL (3.4-5.0); BILIRUBIN TOTAL 0.6 mg/dL (0.2-1.0); CALCIUM 9.1 mg/dL (8.5-10.1); CREATININE 1.1 mg/dL (0.8-1.3); EST CRCL DRUG DOSING (CG) 115.01 mL/min; POTASSIUM,K 5.1 mmol/L (3.5-5.1); PROTEIN TOTAL,TP 8.4 g/dL (6.4-8.2)
[2023-07-02 02:41] LABS: AMPHETAMINES SCREEN, URINE NEGATIVE (CUTOFF=500); BARBITURATE SCREEN,URINE NEGATIVE (CUTOFF=200); BENZODIAZEPINES SCREEN,URINE NEGATIVE (CUTOFF=150); BUPRENORPHINE SCREEN,URINE NEGATIVE (CUTOFF=10); METHADONE SCREEN, URINE NEGATIVE (CUTOFF=200); METHAMPHETAMINES SCREEN, URINE NEGATIVE (CUTOFF=500); OXYCODONE SCREEN,URINE NEGATIVE (CUT0FF=100); PCP SCREEN,URINE NEGATIVE (CUTOFF=25); THC SCREEN,URINE 20 NG/ML NEGATIVE (CUTOFF=50)
[2023-07-02 03:32] VITALS: BP 135/86; PULSE 83
== END 2023-07-02 03:55 | disposition home or self-care (01) ==
LOC: MW.ED 01:23
DX: T40.5X5A Adverse effect of cocaine, initial encounter (principal); F10.929 Alcohol use, unspecified with intoxication, unspecified; F17.210 Nicotine dependence, cigarettes, uncomplicated; E66.9 Obesity, unspecified; Z68.32 Body mass index [BMI] 32.0-32.9, adult
CPT/HCPCS: 36415; 80053; 80305; 80307; 85025; 96360; 99284; J3490; J7030

== ENCOUNTER 2024-02-29 22:18 | Emergency (ER) | payer BC ==
[2024-02-29] MEDS ORDERED: Sodium Chloride 0.9% 10 ML Syringe FLUSH PRN (22:32)
[2024-02-29 22:41] LABS: BASOPHILS ABSOLUTE AUTO 0.05 K/uL (0.00-0.20); BASOPHILS PERCENT AUTO 0.5 % (0.0-1.0); EOSINOPHILS ABSOLUTE AUTO 0.25 K/uL (0.00-0.45); EOSINOPHILS PERCENT AUTO 2.5 % (0.0-6.0); HEMATOCRIT 45.1 % (42.0-52.0); HEMOGLOBIN 15.4 g/dL (14.0-18.0); IMMATURE GRAN ABSOLUTE AUTO 0.01 K/uL (0.00-0.05); IMMATURE GRAN PERCENT AUTO 0.1 % (0.0-0.4); LYMPHOCYTES ABSOLUTE AUTO 2.63 K/uL (1.00-4.80); MEAN CORPUSCULAR HEMOGLOBIN 29.2 pg (28.0-32.0); MEAN CORPUSCULAR HGB CONC 34.1 g/dL (32.0-36.0); MEAN CORPUSCULAR VOLUME 85.6 fL (83.0-99.0); MEAN PLATELET VOLUME 10.7 fL (9.4-12.4); MONOCYTES ABSOLUTE AUTO 0.67 K/uL (0.00-0.80); MONOCYTES PERCENT AUTO 6.6 % (0.0-8.0); NEUTROPHILS ABSOLUTE AUTO 6.49 K/uL (1.80-7.70); NEUTROPHILS PERCENT AUTO 64.3 % (41.0-71.0); PLATELET COUNT,PLT 169 K/uL (150-400); RED BLOOD CELL COUNT 5.27 M/uL (4.52-5.90)
[2024-02-29 23:11] LABS: A/G RATIO 1.5 (0.9-1.6); ALANINE AMINOTRANSFERASE,ALT 38 IU/L (14-63); ALBUMIN 4.3 g/dL (3.4-5.0); ALKALINE PHOSPHATASE 65 U/L (46-116); ASPARTATE AMNIOTRANSFERASE,AST 20 IU/L (15-37); BILIRUBIN TOTAL 0.5 mg/dL (0.2-1.0); BLOOD UREA NITROGEN,BUN 16 mg/dL (7.0-18.0); CALCIUM 8.8 mg/dL (8.5-10.1); CARBON DIOXIDE,CO2 29.7 mmol/L (21.0-32.0); CHLORIDE,CL 103 mmol/L (98-107); CREATININE 1.2 mg/dL (0.8-1.3); EST CRCL DRUG DOSING (CG) 105.42 mL/min; GLUCOSE RANDOM 106 mg/dL (74-106); LIPASE 38 U/L (16-77); POTASSIUM,K 3.6 mmol/L (3.5-5.1); PRO B-TYPE NATRIUR PEPT,BNPPRO 18 pg/mL (0-125); PROTEIN TOTAL,TP 7.2 g/dL (6.4-8.2); SODIUM,NA 142 mmol/L (136-148)
[2024-02-29 23:27] LABS: ESTIMATED GFR 86 mL/min (>60)
[2024-03-01 01:06] VITALS: PULSE 64
[2024-03-01 01:07] VITALS: BP 128/76
== END 2024-03-01 01:06 | disposition home or self-care (01) ==
LOC: MW.ED 22:18
DX: R07.9 Chest pain, unspecified (principal); F17.200 Nicotine dependence, unspecified, uncomplicated; E66.9 Obesity, unspecified; Z68.35 Body mass index [BMI] 35.0-35.9, adult
CPT/HCPCS: 36415; 71045; 71045-26; 80053; 83690; 83880; 84484; 85025; 93005; 93010; 99282; 99285

== ENCOUNTER 2024-12-15 17:52 | Emergency (ER) | payer BC ==
[2024-12-15 20:03] VITALS: BP 152/96; PULSE 77
== END 2024-12-15 20:03 | disposition home or self-care (01) ==
LOC: MW.ED 17:52
DX: M77.8 Other enthesopathies, not elsewhere classified (principal); F17.200 Nicotine dependence, unspecified, uncomplicated; Z79.899 Other long term (current) drug therapy
CPT/HCPCS: 93971-26-LT; 93971-LT; 99283; 99284

== ENCOUNTER 2025-04-22 19:29 | Emergency (ER) | payer BC ==
[2025-04-22 19:36] VITALS: BP 157/77; PULSE 70
[2025-04-22 21:48] LABS: BASOPHILS ABSOLUTE AUTO 0.04 K/uL (0.00-0.20); BASOPHILS PERCENT AUTO 0.6 % (0.0-1.0); EOSINOPHILS ABSOLUTE AUTO 0.18 K/uL (0.00-0.45); EOSINOPHILS PERCENT AUTO 2.5 % (0.0-6.0); IMMATURE GRAN ABSOLUTE AUTO 0.00 K/uL (0.00-0.05); IMMATURE GRAN PERCENT AUTO 0.0 % (0.0-0.4); LYMPHOCYTES ABSOLUTE AUTO 2.11 K/uL (1.00-4.80); LYMPHOCYTES PERCENT AUTO 29.7 % (24.0-44.0); MEAN PLATELET VOLUME 10.4 fL (9.4-12.4); MONOCYTES ABSOLUTE AUTO 0.51 K/uL (0.00-0.80); MONOCYTES PERCENT AUTO 7.2 % (0.0-8.0); NEUTROPHILS ABSOLUTE AUTO 4.26 K/uL (1.80-7.70); NEUTROPHILS PERCENT AUTO 60.0 % (41.0-71.0); NRBC ABSOLUTE 0.00 K/uL (0.00-0.02); NRBC PERCENT 0.0 /100WBC (0.0-0.2); PLATELET COUNT,PLT 162 K/uL (150-400); RED BLOOD CELL COUNT 5.20 M/uL (4.52-5.90); WHITE BLOOD CELL COUNT,WBC 7.10 K/uL (3.9-11.3)
[2025-04-22] MEDS: Alum Hydrox/Mag Hydrox/Simeth 15 ML, Lidocaine 2% 5 ML PO ONE (21:49)
[2025-04-22 22:23] LABS: A/G RATIO 1.3 (0.9-1.6); ALANINE AMINOTRANSFERASE,ALT 40.0 IU/L (14-63); ASPARTATE AMNIOTRANSFERASE,AST 23.0 IU/L (15-37); BILIRUBIN TOTAL 0.6 mg/dL (0.2-1.0); BLOOD UREA NITROGEN,BUN 16.0 mg/dL (7.0-18.0); CARBON DIOXIDE,CO2 29.8 mmol/L (21.0-32.0); CHLORIDE,CL 103.0 mmol/L (98-107); CREATININE 1.1 mg/dL (0.8-1.3); EST CRCL DRUG DOSING (CG) 114.0 mL/min; GLUCOSE RANDOM 95.0 mg/dL (74-106); POTASSIUM,K 4.1 mmol/L (3.5-5.1); PROTEIN TOTAL,TP 7.4 g/dL (6.4-8.2); SODIUM,NA 141.0 mmol/L (136-148)
[2025-04-22 22:41] LABS: ESTIMATED GFR 94.0 mL/min (>60)
== END 2025-04-23 00:40 | disposition left against medical advice (07) ==
LOC: MW.ED 19:29
DX: R10.13 Epigastric pain (principal); E78.00 Pure hypercholesterolemia, unspecified; F17.200 Nicotine dependence, unspecified, uncomplicated; Z75.3 Unavailability and inaccessibility of health-care facilities; Z53.20 Procedure and treatment not carried out because of patient's decision for unspecified reasons
CPT/HCPCS: 36415; 71046; 71046-26; 80053; 83690; 84484; 85025; 93005; 93010; 99284; 99285; A9270-GY

== ENCOUNTER 2025-05-02 12:58 | Emergency (ER) | payer BC ==
[2025-05-02] MEDS: Ketorolac 30 MG/ML SDV IM ONE (13:22)
[2025-05-02 13:41] VITALS: BP 111/70; PULSE 66
== END 2025-05-02 13:41 | disposition home or self-care (01) ==
LOC: MW.ED 12:58
DX: M54.10 Radiculopathy, site unspecified (principal); E66.9 Obesity, unspecified; Z79.899 Other long term (current) drug therapy; Z68.36 Body mass index [BMI] 36.0-36.9, adult
CPT/HCPCS: 96372; 99283; A9270; J1885

== ENCOUNTER 2025-06-18 18:01 | Emergency (ER) | payer BC ==
[2025-06-18 22:07] LABS: BASOPHILS ABSOLUTE AUTO 0.05 K/uL (0.00-0.20); BASOPHILS PERCENT AUTO 0.6 % (0.0-1.0); EOSINOPHILS ABSOLUTE AUTO 0.14 K/uL (0.00-0.45); EOSINOPHILS PERCENT AUTO 1.8 % (0.0-6.0); IMMATURE GRAN ABSOLUTE AUTO 0.01 K/uL (0.00-0.05); IMMATURE GRAN PERCENT AUTO 0.1 % (0.0-0.4); LYMPHOCYTES ABSOLUTE AUTO 2.14 K/uL (1.00-4.80); LYMPHOCYTES PERCENT AUTO 27.0 % (24.0-44.0); MEAN PLATELET VOLUME 10.6 fL (9.4-12.4); MONOCYTES ABSOLUTE AUTO 0.49 K/uL (0.00-0.80); MONOCYTES PERCENT AUTO 6.2 % (0.0-8.0); NEUTROPHILS ABSOLUTE AUTO 5.10 K/uL (1.80-7.70); NEUTROPHILS PERCENT AUTO 64.3 % (41.0-71.0); NRBC ABSOLUTE 0.00 K/uL (0.00-0.02); NRBC PERCENT 0.0 /100WBC (0.0-0.2); PLATELET COUNT,PLT 172 K/uL (150-400); RED BLOOD CELL COUNT 5.24 M/uL (4.52-5.90); WHITE BLOOD CELL COUNT,WBC 7.93 K/uL (3.9-11.3)
[2025-06-18] MEDS: Alum Hydrox/Mag Hydrox/Simeth 15 ML, Lidocaine 2% 5 ML PO ONE (22:23)
[2025-06-18 22:45] LABS: A/G RATIO 1.5 (0.9-1.6); ALANINE AMINOTRANSFERASE,ALT 44.0 IU/L (14-63); ASPARTATE AMNIOTRANSFERASE,AST 26.0 IU/L (15-37); BILIRUBIN TOTAL 0.8 mg/dL (0.2-1.0); BLOOD UREA NITROGEN,BUN 9.0 mg/dL (7.0-18.0); CARBON DIOXIDE,CO2 30.5 mmol/L (21.0-32.0); CHLORIDE,CL 102.0 mmol/L (98-107); CREATININE 1.2 mg/dL (0.8-1.3); EST CRCL DRUG DOSING (CG) 104.5 mL/min; GLUCOSE RANDOM 86.0 mg/dL (74-106); POTASSIUM,K 3.9 mmol/L (3.5-5.1); PROTEIN TOTAL,TP 7.8 g/dL (6.4-8.2); SODIUM,NA 141.0 mmol/L (136-148)
[2025-06-18 22:52] LABS: ESTIMATED GFR 85.0 mL/min (>60)
[2025-06-18] MEDS: Iopamidol 755 MG/ML 500 ML Multipack Bottle IVPUSH STA (23:45)
[2025-06-19 01:27] VITALS: BP 126/81; PULSE 66
== END 2025-06-19 01:26 | disposition home or self-care (01) ==
LOC: MW.ED 18:01
DX: R07.89 Other chest pain (principal); E78.00 Pure hypercholesterolemia, unspecified; Z87.891 Personal history of nicotine dependence
CPT/HCPCS: 36415; 71046; 71275; 80053; 83735; 84484; 85025; 85379; 87428; 93005; 99285; A9270; J3490; Q9967; 99283